=== PATIENT | female | born 1985 | race American Indian/Alaskan Native ===

== ENCOUNTER 2016-03-05 23:27 | Emergency (ER) | payer OTHER ==
[2016-03-06] MEDS ORDERED: TYLENOL PO ONE (00:01)
[2016-03-06 00:45] LABS: Basophils % (Auto) 0.6 % (0.0-1.8); Eosinophils % (Auto) 1.7 % (0.0-4.3); Hematocrit 32.3 % (30.3-42.9); Hemoglobin 10.5 gm/dl (10.1-14.3); Mean Corpuscular HGB Conc 33 % (30-34); Mean Corpuscular Hemoglobin 26 pg (28-32); Mean Corpuscular Volume 81 fl (79-97); Platelet Count 470 K/mm3 (140-440); Red Blood Count 4.01 M/mm3 (3.65-5.03); Red Cell Distribution Width 15.4 % (13.2-15.2); White Blood Count 10.4 K/mm3 (4.5-11.0)
[2016-03-06 00:59] LABS: Anion Gap 14 mmol/L; Blood Urea Nitrogen 8 mg/dL (7-17); Calcium 8.7 mg/dL (8.4-10.2); Carbon Dioxide 26 mmol/L (22-30); Chloride 102.1 mmol/L (98-107); Glucose 109 mg/dL (65-100); Potassium 4.1 mmol/L (3.6-5.0); Sodium 138 mmol/L (137-145)
[2016-03-06] MEDS ORDERED: VALIUM PO ONE (01:58)
[2016-03-06] MEDS ORDERED: CATAPRES PO ONE (01:58)
--- NOTE | 2016-03-06 02:14 | Emergency Department Report ---
HPI - General Chief Complaint: Chest Pain Time Seen by Provider: 03/06/16 01:56 - HPI HPI: The patient is 30-year-old female who presents for evaluation of chest pain. The patient reports on and off chest pain for the past one month, midsternal in location, sharp in quality, moderate to severe. She states that her symptoms were worsened today due to the attendance of a of a close family member. The patient denies fever, cough, syncope, hemoptysis, unilateral leg swelling, recent immobilization, history of DVT or PE, hx cancer, congenital heart disease, or illicit drug use. ED Past Medical Hx - Past Medical History Previous Medical History?: No Hx CVA: No Hx Heart Attack/AMI: No Hx Congestive Heart Failure: No Hx Diabetes: No Hx Pulmonary Embolism: No Hx GERD: No Additional medical history: cyst ovary - Surgical History Past Surgical History?: Yes Additional Surgical History: ovarian cysts - Social History Smoking Status: Never Smoker - Medications Home Medications: Home Medications Medication Instructions Recorded Confirmed Last Taken Type Diazepam Tab [Valium] 5 mg PO Q8HR PRN #15 tablet 03/06/16 Unknown Rx Lisinopril [Zestril TAB] 5 mg PO QDAY #31 tablet 03/06/16 Unknown Rx ED Review of Systems ROS: Stated complaint: CHEST PAIN Other details as noted in HPI Constitutional: denies: fever ENT: denies: throat or neck pain Respiratory: denies: cough, shortness of breath Cardiovascular: reports chest pain Endocrine: denies unexplained weight loss or gain Gastrointestinal: denies: abdominal pain, nausea Genitourinary: denies: dysuria Musculoskeletal: denies: leg swelling Skin: denies: rash Neurological: denies: headache Hematological/Lymphatic: denies: easy bleeding or easy bruising Psych: denies sadness or hopelessness Physical Exam - Physical Exam Vital Signs: Vital Signs 03/05/16 03/06/16 03/06/16 23:51 01:24 01:56 Temperature 98.1 F 98.4 F Pulse Rate 93 H 80 Respiratory 16 18 18 Rate Blood Pressure 197/124 Blood Pressure 175/114 [Left] O2 Sat by Pulse 95 100 100 Oximetry Physical Exam: General: well-nourished, well-developed, no acute distress Head: Normocephalic, atraumatic Eyes: normal sclera ENT: Mucous membranes are pink and moist Neck: trachea midline, neck supple, No neck stiffness, no cervical adenopathy Respiratory: Breath sounds equal bilaterally, no wheezing, rales, or rhonchi Cardio: S1 and S2 present, no murmurs, rubs, gallops, capillary refill is brisk Abdomen: Normoactive bowel sounds, soft abdomen, no rigidity, no guarding or rebound tenderness Chest WALL/Back: positive mid-sternal tenderness to palpation of the chest wall present Musc: No pitting edema Skin: No rash Neuro: no facial drooping, normal speech Psych: Normal affect ED Course Vital Signs 03/05/16 03/06/16 03/06/16 23:51 01:24 01:56 Temperature 98.1 F 98.4 F Pulse Rate 93 H 80 Respiratory 16 18 18 Rate Blood Pressure 197/124 Blood Pressure 175/114 [Left] O2 Sat by Pulse 95 100 100 Oximetry ED Medical Decision Making - Lab Data Result diagrams: 03/06/16 00:33 03/06/16 00:33 - Medical Decision Making The patient was seen and examined by myself. The patient is placed on a cardiac cath rn and continuous pulse ox. On initial evaluation, the patient was found to be in no distress. EKG was negative for findings suggestive of acute cardiac infarct. Labs and imaging are obtained. The patient given a tablet of Valium for her chest pain and a tablet of clonidine for her elevated blood pressure. Chest x-ray is negative for pneumothorax, focal consolidation, pulmonary vascular congestion, pleural effusion, or other obvious acute cardiopulmonary disease process. Lab results were non-concerning including levels of troponin, WBC, hemoglobin, hematocrit, electrolytes, renal function. The patient was reevaluated and reported that their symptoms were markedly improved. As the patient has a BINH risk score less than 2, and a well's score less than 2, the patient is at low risk of ACS or pulmonary emboli etiology of their symptoms. On reexamination the patient's blood pressure was found to decrease outside of range concerning for hypertensive emergency. The patient is stable for discharge with outpatient follow-up. The patient is given follow-up and return instructions. The patient expressed understanding and agreed with the plan. The patient is discharged in stable condition. Critical care attestation.: If time is entered above; I have spent that time in minutes in the direct care of this critically ill patient, excluding procedure time. ED Disposition Clinical Impression: Acute chest pain, Asymptomatic hypertensive urgency Disposition: DISCHARGED TO HOME OR SELFCARE Is pt being admited?: No Does the pt Need Aspirin: No Condition: Stable Instructions: Chest Pain (ED), Hypertension (ED), Chronic Hypertension (ED) Referrals: PRIMARY CARE,MD [Primary Care Provider] - 3-5 Days VIJAYA HINKLE MD [Staff Physician] - 3-5 Days Time of Disposition: 02:15
[2016-03-06] MEDS ORDERED: ALUM-MAG HYDROX-SIMETH 200-200-20MG/5ML PO ONE (02:17)
[2016-03-06] MEDS ORDERED: LIDOCAINE VISCOUS 2% PO ONE (02:17)
[2016-03-06] MEDS ORDERED: PROTONIX PO ONE (02:17)
[2016-03-06] MEDS ORDERED: ZOFRAN ODT PO ONE (02:18)
[2016-03-06] MEDS ORDERED: NITROSTAT SL ONE (02:18)
[2016-03-06 04:20] VITALS: BP 162/95
--- NOTE | 2016-03-06 09:45 | XRay Report ---
Single view chest: Compared to 02/03/16. History: Chest pain. Findings: Normal cardiomediastinal silhouette. Trachea is midline. No consolidation, pneumothorax or pleural effusion. Impression: No acute cardiopulmonary findings.
== END 2016-03-06 03:20 | disposition home or self-care (01) ==
LOC: ED 23:27
DX: R07.2 Precordial pain (principal); I10 Essential (primary) hypertension
CPT/HCPCS: 36415; 71010; 80048; 83880; 84484; 84703; 85025; 93005; 93010; 99285

== ENCOUNTER 2016-06-11 11:16 | Outpatient (CLI) | payer OTHER ==
[2016-06-11 12:17] LABS: Blood Urea Nitrogen 8 mg/dL (7-17)
--- NOTE | 2016-06-13 11:16 | Magnetic Resonance Report ---
MRI PELVIS WITHOUTAND WITH CONTRAST: 06/11/16 CLINICAL: Adnexal mass and pelvic pain. History of excision of a dermoid cyst. COMPARISON :CT Abdomen and Pelvis with contrast 12/03/11. TECHNIQUE: Sagittal, coronal and axial T1 and T2 fat sat sequences plus sagittal, coronal and axial postcontrast T1 fat sequences on a 1.5 Nupur magnet. 20.0 cc of Multihance was injected intravenously for contrast portion of exam the consent was obtained prior to the administration of contrast. FINDINGS: Normal uterus measuring 9.8 x 4.9 x 5.4 cm. Normal uterine contour and echogenicity. The endometrium is normal and measures 7.4 mm AP thickness. A multicystic mass of the right adnexa measures 11.5 x 7.6 x 11.7 cm. The largest component it is a cyst measuring 8.9 cm. A smaller cyst contains a fat fluid level and a left-sided cyst has an enhancing mural nodule. The mass crosses the midline and has characteristics very similar to a much larger mass that was described on the previous CT. That mass also crosses the midline but presumably arose from the left ovary. No normal ovary is identified on this exam. Mild physiologic free fluid in the pelvis. The urinary bladder is normal. Normal bones and soft tissues. Normal rectum. The imaged portions of large and small bowel are normal. IMPRESSION: 1. 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 The previously excised dermoid presumably arose from the left ovary and no normal ovary is identified on this exam. 2. Normal uterus.
== END 2016-06-11 11:17 | disposition home or self-care (01) ==
LOC: MRI 11:16
PROVIDERS: ATTEND Obstetrics & Gynecology Gynecology
DX: D27.0 Benign neoplasm of right ovary (principal); N94.9 Unspecified condition associated with female genital organs and menstrual cycle; Z98.890 Other specified postprocedural states
CPT/HCPCS: 36415; 72197; 82565; 84520; A9577